=== PATIENT | female | born 1965 | race Two or more races ===

== ENCOUNTER 2020-09-11 19:31 | Emergency (ER) | payer OTHER ==
[~2020-09-11] VITALS: Ht 162.6 cm; Wt 62.7 kg
--- NOTE | 2020-09-11 20:00 | PHYS DOC ---
Adult General Chief Complaint Chief Complaint: ABDOMINAL PAIN HPI HPI Patient is a 54-year-old female with a past medical history significant for hysterectomy who presents to the emergency department with a chief complaint of epigastric pain. States has been going on over the last week, intermittently, 7 out of 10 pain, sharp in nature with some radiation to her back. States she cannot identify any aggravating or alleviating factors. States has had a couple episodes of mild nausea but no vomiting. Denies any recent travel, traumas, fevers, chest pain, shortness of breath, dysuria, hematuria, diarrhea or blood in stool. Denies any known ill contacts. Denies any alcohol or drug use. Denies any history of heartburn. Denies any dyspnea on exertion, orthopnea, PND or edema. Review of Systems Review of Systems Constitutional: Denies fever or chills [] Eyes: Denies change in visual acuity, redness, or eye pain [] HENT: Denies nasal congestion or sore throat [] Respiratory: Denies cough or shortness of breath [] Cardiovascular: No additional information not addressed in HPI [] GI: Denies abdominal pain, nausea, vomiting, bloody stools or diarrhea [] : Denies dysuria or hematuria [] Musculoskeletal: Denies back pain or joint pain [] Integument: Denies rash or skin lesions [] Neurologic: Denies headache, focal weakness or sensory changes [] Endocrine: Denies polyuria or polydipsia [] All other systems were reviewed and found to be within normal limits, except as documented in this note. Allergies Allergies Allergies Coded Allergies Type Severity Reaction Last Updated Verified No Known Drug Allergies 09/11/20 No Physical Exam Physical Exam Constitutional: Well developed, well nourished, no acute distress, non-toxic appearance. [] HENT: Normocephalic, atraumatic, bilateral external ears normal, oropharynx moist, no oral exudates, nose normal. [] Eyes: conjunctiva normal, no discharge. [] Neck: Normal range of motion, no tenderness, supple, no stridor. [] Cardiovascular:Heart rate regular rhythm, no murmur [] Lungs & Thorax: Bilateral breath sounds clear to auscultation [] Abdomen: Bowel sounds normal, soft, no tenderness, no masses, no pulsatile masses. [] Skin: Warm, dry, no erythema, no rash. [] Back: No tenderness, no CVA tenderness. [] Extremities: No tenderness, no cyanosis, no clubbing, ROM intact, no edema. [] Neurologic: Alert and oriented X 3, normal motor function, normal sensory function, no focal deficits noted. [] Psychologic: Affect normal, judgement normal, mood normal. [] EKG EKG [] Radiology/Procedures Radiology/Procedures []xam: CT abdomen/pelvis with intravenous contrast Indication: Epigastric pain for a week Comparison: None Technique: Helical CT imaging performed of the abdomen and pelvis after the intravenous administration of intravenous contrast. Sagittal and coronal reformats were obtained. One or more of the following individualized dose reduction techniques were utilized for this examination: 1. Automated exposure control 2. Adjustment of the mA and/or kV according to patient size 3. Use of iterative reconstruction technique. Findings: Lower chest: The lung bases are clear. The heart is normal in size. Liver: The liver measures 18 cm in length. No focal lesion. Gallbladder/Biliary Tree: There is cholelithiasis. Bile ducts are normal. Pancreas: Normal. Spleen: There is a 3.6 cm solid round mass in the spleen with Hounsfield units of 72. Adrenal Glands: Normal. Kidneys/Ureters/Bladder: Kidneys are normal in size and enhance symmetrically. No hydronephrosis. Ureters are normal in caliber. 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 The bladder is normal. Reproductive Organs: Uterus is absent. No adnexal mass. Stomach, small bowel, and colon: The stomach, small bowel, appendix, and colon are normal. Vasculature: No aortic aneurysm. Lymph Nodes: No lymphadenopathy. Peritoneum and retroperitoneum: No free fluid or free air. Bones: No acute osseous abnormality. Impression: 1. Cholelithiasis. 2. 3.6 cm solid mass in the spleen. This is indeterminate. Recommend nonemergent MRI with and without contrast to further evaluate. Electronically signed by: Shiloh Becker MD (09/11/2020 9:21 PM) [id number] Heart Score C/O Chest Pain: No Risk Factors: Risk Factors: DM, Current or recent (<one month) smoker, HTN, HLP, family history of CAD, obesity. Risk Scores: Risk Factors: DM, Current or recent (<one month) smoker, HTN, HLP, family history of CAD, obesity. Course & Med Decision Making Course & Med Decision Making Pertinent Labs and Imaging studies reviewed. (See chart for details) [] Dragon Disclaimer Dragon Disclaimer This electronic medical record was generated, in whole or in part, using a voice recognition dictation system. Departure Departure: Impression: Primary Impression: Epigastric abdominal pain Additional Impressions: Biliary colic Splenic mass Disposition: HOME / SELF CARE / HOMELESS Condition: GOOD Referrals: EM GARNER (PCP) Patient Instructions: Biliary Colic Additional Instructions: Please read all of the attached information very carefully. You are given a co py of your CT report which shows that you have some gallstones which are likely responsible for your symptoms. As discussed you should probably discuss this with your primary care physician to see about talking to a surgeon for outpatient removal of your gallbladder at some point. Your CT scan also showed a 3 cm mass in your spleen that needs follow-up as well. As discussed bring this up with your primary care physician to discuss outpatient MRI to better characterize this. Please call your primary care physician as soon as you can to update him on these issues and set up a follow-up appointment as soon as possible. Please come back to the ED with new or concerning symptoms as discussed. Problem Qualifiers ILAN RENEE MD September 11, 2020 20:00
[2020-09-11] MEDS ORDERED: IOHEXOL 300 MG/ML 75 ML VIAL. IV ONE (20:15)
[2020-09-11] MEDS ORDERED: MORPHINE SULFATE 4 MG/ML DISP.SYRIN. IV ONE (20:15)
[2020-09-11 20:22] LABS: BASO # 0.1 x10^3/uL (0.0-0.2); BASO % 0 % (0-3); EOS # 0.2 x10^3/uL (0.0-0.7); EOS % 2 % (0-3); HEMATOCRIT 44.3 % (36.0-47.0); HEMOGLOBIN 14.7 g/dL (12.0-15.5); LYMPH # 3.2 x10^3/uL (1.0-4.8); LYMPH % 23 % (24-48); MEAN CORPUSCULAR HEMOGLOBIN 29 pg (25-35); MEAN CORPUSCULAR HGB CONC 33 g/dL (31-37); MEAN CORPUSCULAR VOLUME 86 fL (79-100); MONO # 1.2 x10^3/uL (0.0-1.1); MONO % 9 % (0-9); NEUT # 9.2 x10^3uL (1.8-7.7); NEUT % 66 % (31-73); PLATELET COUNT 434 x10^3/uL (140-400); RED BLOOD COUNT 5.15 x10^6/uL (3.50-5.40); RED CELL DISTRIBUTION WIDTH 18.8 % (11.5-14.5); WHITE BLOOD COUNT 13.9 x10^3/uL (4.0-11.0)
--- NOTE | 2020-09-11 20:27 | EKG ---
[address] [address] Test Date: 2020-09-11 Test Time: 20:17:14 Pat Name: HEATHER GONZALEZ Department: Room: Gender: F Reading Interventionist: CHRISTIAN : [id number] Requested By: ILAN RENEE Order Number: [id number] Reading MD: Measurements Intervals [place] Rate: 77 P: 38 DC: 158 QRS: 21 QRSD: 84 T: 21 QT: 404 QTc: 459 Interpretive Statements SINUS RHYTHM NORMAL ECG RI6.02 No previous ECG available for comparison
[2020-09-11 20:34] LABS: BILIRUBIN,URINE NEG (NEG); CALCIUM 9.2 mg/dL (8.5-10.1); CLARITY,URINE CLEAR; COLOR,URINE COLORLESS; CREATININE 0.6 mg/dL (0.6-1.0); GFR 103.4; GLUCOSE,URINE NEG (NEG); NITRITE,URINE NEG (NEG); POTASSIUM 4.3 mmol/L (3.5-5.1); UROBILINOGEN,URINE 0.2 mg/dL (0.2 mg/dL)
[2020-09-11 20:37] LABS: BACTERIA,URINE 0 /HPF (0-FEW); RBC,URINE OCC /HPF (0-2); SQUAMOUS EPITHELIAL CELL,UR OCC /LPF
[2020-09-11 20:39] LABS: ALBUMIN 4.3 g/dL (3.4-5.0); ALBUMIN/GLOBULIN RATIO 1.3 (1.0-1.7); TOTAL BILIRUBIN 0.4 mg/dL (0.2-1.0); TOTAL PROTEIN 7.7 g/dL (6.4-8.2)
[2020-09-11 20:58] LABS: % ATYL 2 % (0-0); % BANDS 3 % (0-9); % EOS 1 % (0-5); % LYMPHS 27 % (24-48); % MONOS 15 % (0-10); % SEGS 52 % (35-66); NUCLEATED RBC 2
[2020-09-11 20:59] LABS: PLT ESTIMATE ADEQUATE (ADEQUATE)
[2020-09-11 21:00] LABS: ANISOCYTOSIS SLIGHT
--- NOTE | 2020-09-11 21:24 | RAD ---
Exam: CT abdomen/pelvis with intravenous contrast Indication: Epigastric pain for a week Comparison: None Technique: Helical CT imaging performed of the abdomen and pelvis after the intravenous administratio n of intravenous contrast. Sagittal and coronal reformats were obtained. One or more of the following individualized dose reduction techniques were utilized for this examinat ion: 1. Automated exposure control 2. Adjustment of the mA and/or kV according to patient size 3. Use of iterative reconstruction technique. Findings: Lower chest: The lung bases are clear. The heart is normal in size. Liver: The liver measures 18 cm in length. No focal lesion. Gallbladder/Biliary Tree: There is cholelithiasis. Bile ducts are normal. Pancreas: Normal. Spleen: There is a 3.6 cm solid round mass in the spleen with Hounsfield units of 72. Adrenal Glands: Normal. Kidneys/Ureters/Bladder: Kidneys are normal in size and enhance symmetrically. No hydronephrosis. Ure ters are normal in caliber. 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 The bladder is normal. Reproductive Organs: Uterus is absent. No adnexal mass. Stomach, small bowel, and colon: The stomach, small bowel, appendix, and colon are normal. Vasculature: No aortic aneurysm. Lymph Nodes: No lymphadenopathy. Peritoneum and retroperitoneum: No free fluid or free air. Bones: No acute osseous abnormality. Impression: 1. Cholelithiasis. 2. 3.6 cm solid mass in the spleen. This is indeterminate. Recommend nonemergent MRI with and withou t contrast to further evaluate. Electronically signed by: Shiloh Becker MD (09/11/2020 9:21 PM) [id number]
[2020-09-11 21:50] VITALS: BP 150/82
== END 2020-09-11 22:02 | disposition home or self-care (01) ==
LOC: ER 19:31
DX: K80.50 Calculus of bile duct without cholangitis or cholecystitis without obstruction (principal); R16.1 Splenomegaly, not elsewhere classified; Z90.710 Acquired absence of both cervix and uterus
CPT/HCPCS: 36415; 74177; 80053; 81001; 83690; 84484; 85007; 85025; 93005; 96374; 99285; J2270; Q9967

== ENCOUNTER 2021-07-28 10:55 | Emergency (ER) | payer OTHER ==
[~2021-07-28] VITALS: Ht 162.6 cm; Wt 62.7 kg
[2021-07-28 11:12] VITALS: BP 140/100
[2021-07-28] MEDS ORDERED: AMOX500C PO (11:36)
--- NOTE | 2021-07-28 11:36 | PHYS DOC ---
Past History Past Medical History: Other Additional Past Medical Histor: insomnia (ESTEPHANIE DEL TORO APRN) Past Surgical History: Hysterectomy (ESTEPHANIE DEL TORO APRN) Alcohol Use: None (ESTEPHANIE DEL TORO APRN) General Adult EDM: Chief Complaint: MULTIPLE COMPLAINTS HPI: HPI: Patient is a 55-year-old female presents with sore throat, headache, swollen lymph nodes, fever. Patient states that symptoms started 4 days ago. Pain is worse with swallowing. Patient is able to maintain own secretions. Last dose of Tylenol was last night. Patient also been taking NyQuil at home. Denies being around any recent illness. Denies medical history. Patient been fully vaccinated for Covid. (ESTEPHANIE DEL TORO APRN) Review of Systems: Review of Systems: ROS At least 10 ROS systems have been reviewed and are negative except as documented in the HPI. (ESTEPHANIE DEL TORO APRN) Allergies: Allergies: Allergies Coded Allergies Type Severity Reaction Last Updated Verified No Known Drug Allergies 09/11/20 No (ESTEPHANIE DEL TORO APRN) Physical Exam: PE: Constitutional: Well developed, well nourished, no acute distress, non-toxic appearance. [] HENT: bilateral external ears normal, oropharynx red, oral exudates seen, cervical lymphadenopathy Eyes: PERRLA, conjunctiva normal, no discharge. [] Neck: Normal range of motion, no tenderness, no stridor. [] Cardiovascular:Heart rate regular rhythm, no murmur [] Lungs & Thorax: Bilateral breath sounds clear to auscultation [] Abdomen: Bowel sounds normal, soft, no tenderness, no masses, no pulsatile masses. [] Skin: Warm, dry, no erythema, no rash. [] Back: No tenderness, no CVA tenderness. [] Extremities: No tenderness, no cyanosis, no clubbing, ROM intact, no edema. [] Neurologic: Alert and oriented X 3, normal motor function, normal sensory function, no focal deficits noted. [] Psychologic: Affect normal, judgement normal, mood normal. [] (ESTEPHANIE DEL TORO APRN) Current Patient Data: Vital Signs: Vital Signs Date Time Temp Pulse Resp B/P (MAP) Pulse Ox O2 Delivery O2 Flow Rate FiO2 07/28/21 11:12 98.2 104 16 140/100 (113) 96 Room Air (ESTEPHANIE DEL TORO APRN) EKG: EKG: [] (ESTEPHANIE DEL TORO APRN) Radiology/Procedures: Radiology/Procedures: [] (ESTEPHANIE DEL TORO APRN) Heart Score: C/O Chest Pain: No Risk Factors: Risk Factors: DM, Current or recent (<one month) smoker, HTN, HLP, family history of CAD, obesity. Risk Scores: Score 0 - 3: 2.5% MACE over next 6 weeks - Discharge Home Score 4 - 6: 20.3% MACE over next 6 weeks - Admit for Clinical Observation Score 7 - 10: 72.7% MACE over next 6 weeks - Early Invasive Strategies (ESTEPHANIE DEL TORO APRN) Course & Med Decision Making: Course & Med Decision Making Pertinent Labs and Imaging studies reviewed. (See chart for details) [] 55-year-old who presents with sore throat, headache, fever. Oral exudates seen on physical exam. Cervical lymph nodes are swollen. Patient is able to maintain her own secretions. Afebrile on arrival. Patient given ibuprofen to help with headache. Started patient on antibiotic for pharyngitis. Discussed importance of drinking plenty of fluids. Follow-up with primary care if symptoms are not improving in the next 48 to 72 hours. Sanaz return precautions in length. Patient appreciative and okay for discharge plan. (ESTEPHANIE DEL TORO APRN) Shelley Disclaimer: Shelley Disclaimer: This electronic medical record was generated, in whole or in part, using a voice recognition dictation system. (ESTEPHANIE DEL TORO APRN) Departure Departure: Impression: Primary Impression: Headache Qualified Codes: R51.9 - Headache, unspecified Additional Impression: Acute pharyngitis Qualified Codes: J02.9 - Acute pharyngitis, unspecified Disposition: 01 HOME / SELF CARE / HOMELESS Condition: STABLE Referrals: EM GARNER (PCP) Patient Instructions: General Headache Without Cause, [id number] Additional Instructions: You were given ibuprofen while in the ER for your headache. Continue using Chloraseptic spray for your throat pain. Drink plenty of fluids. Sending you home with a antibiotic. Make sure you take in full and as directed. Tylenol ibuprofen for fever and pain. Follow-up with PCP if symptoms not improved in the next 40 to 72 hours. EMERGENCY DEPARTMENT GENERAL DISCHARGE INSTRUCTIONS Thank you for coming to [facility] (ED) today and trusting us with you care. We trust that you had a positivie experience in our Emergency Department. If you wish to speak to the department management, you may call the director at [phone]. YOUR FOLLOW UP INSTRUCTIONS ARE FOLLOWS: 1. Do you have a private Doctor? If you do not have a private doctor, please ask for a resource list of physicians or clinics that may be able to assist you with follow up care. 2. The Emergency Physician has interpreted your x-rays. The X-Ray specialist will also review them. If there is a change in the findings, you will be notified in 48 hours when at all possible. 3. A lab test or culture has been done, your results will be reviewed and you will be notified if you need a change in treatment. ADDITIONAL INSTRUCTIONS AND INFORMATION: 1. Your care today has been supervised by a physician who is specially trained in emergency care. Many problems require more than one evaluation for a complete diagnosis and treatment. We recommend that you schedule your follow up appointment as recommended to ensure complete treatment of you illness or injury. If you are unable to obtain follow up care and continue to have a problem, or if your condition worsens, we recommend that you return to the ED. 2. We are not able to safely determine your condition over the phone nor are we able to give sound medical advice over the phone. For these safety reasons, if you call for medical advice we will ask you to come to the ED for further evaluation. 3. If you have any questions regarding these discharge instructions please call the ED at [phone]. SAFETY INFORMATION: In the interest of safety, wellness, and injury prevention; we encourage you to wear your sealbelt, if you smoke; quite smoking, and we encourage family to use a protective helmet for bicycling and other sporting events that present an increased risk for head injury. IF YOUR SYMPTOMS WORSEN OR NEW SYMPTOMS DEVELOP, OR YOU HAVE CONCERNS ABOUT YOUR CONDITION; OR IF YOUR CONDITION WORSENS WHILE YOU ARE WAITING FOR YOUR FOLLOW UP APPOINTMENT; EITHER CONTACT YOUR PRIMARY CARE DOCTOR, THE PHYSICIAN WHOSE NAME AND NUMBER YOU WERE GIVEN, OR RETURN TO THE ED IMMEDIATELY. Scripts Amoxicillin (AMOXICILLIN) 500 Mg Capsule 1 CAP PO BID for infection for 10 Days, #20 CAP Prov: ESTEPHANIE DEL TORO APRN 07/28/21 Attending Signature Attending Signature I have reviewed the PA/AGILE TESTER's note and plan of care. I was available for consultation as needed during the patient's visit in the emergency department. I agree with the clinical impression, plan, and disposition. (OEMR WELSH DO) ESTEPHANIE DEL TORO APRN Jul 28, 2021 11:36 OMER WELSH DO Jul 28, 2021 22:53
[2021-07-28] MEDS ORDERED: IBUPROFEN 600 MG TABLET. PO ONE (11:45)
== END 2021-07-28 12:07 | disposition home or self-care (01) ==
LOC: ER 10:55
DX: J02.9 Acute pharyngitis, unspecified (principal); R51.9 Headache, unspecified
CPT/HCPCS: 99283